=== PATIENT | female | born 1970 | race Caucasian/White ===

== ENCOUNTER 2016-07-23 14:58 | Emergency (ER) | payer OTHER | END 2016-07-23 17:47 | disposition home or self-care (01) | LOC: ER1 14:58 | DX: M54.12 Radiculopathy, cervical region (principal); F17.210 Nicotine dependence, cigarettes, uncomplicated; M06.9 Rheumatoid arthritis, unspecified; Z79.891 Long term (current) use of opiate analgesic; Z79.899 Other long term (current) drug therapy | CPT/HCPCS: 72125; 96372; 99283; J1100; J1885 ==